=== PATIENT | female | born 1975 | race Caucasian/White ===

== ENCOUNTER 2019-11-23 08:38 | Outpatient (CLI) | payer OTHER, SELFPAY ==
--- NOTE | ~2019-11-23 | US_ITS ---
US thyroid INDICATION: Thyroid nodules TECHNIQUE: Real-time sonographic images of the thyroid gland were obtained. COMPARISON: No prior studies for comparison. FINDINGS: The right thyroid lobe measures 4.5 x 1.4 x 1.6 cm. The left thyroid lobe measures 3.9 x 1 .3 x 1.6 cm. There is normal echotexture and echogenicity throughout the thyroid gland. There is a ma ss in the left lobe measuring 9 x 9 x 8 mm with coarse calcifications, solid appearance, hypoechoic, wider than tall, TR 4, likely benign. Normal vascular flow is present. IMPRESSION: 1. Probable benign calcified 9 mm left thyroid mass. Otherwise, unremarkable thyroid ultrasound. Reviewed, dictated and finalized at location A. IMPRESSION: 1. Probable benign calcified 9 mm left thyroid mass. Otherwise, unremarkable t hyroid ultrasound.
== END 2019-11-23 08:39 | disposition home or self-care (01) ==
PROVIDERS: PCP Family Medicine
DX: E04.1 Nontoxic single thyroid nodule (principal)
CPT/HCPCS: 76536

== ENCOUNTER 2020-01-17 12:32 | Emergency (ER) | payer OTHER, SELFPAY ==
[2020-01-17 12:35] VITALS: BP 144/78; PULSE 122; RESP 16; TEMP 36.7; O2SAT 100
[2020-01-17] MEDS: KETOROLAC (*BKC) 60 MG/2 ML VIAL IM (13:06)
--- NOTE | 2020-01-17 13:26 | ED.BACK ---
HPI - Back Pain/Injury General Chief Complaint: Back Pain/Injury Stated Complaint: extreme back pain Source: patient Mode of arrival: wheelchair Limitations: no limitations History of Present Illness MD elicited complaint: back pain and back injury Pertinent past history: prior back pain Onset (ago): week(s) Timing: intermittent Severity: moderate Pain scale (0-10): 7 Similar Symptoms Previously: Yes Quality: spasming Location: lumbar spine Radiation: none Exacerbating factors: movement and walking Relieving factors: immobilization and medication Context: while lifting, turning/twisting and bending Associated symptoms: denies other symptoms Related Data Home Medications Medication Instructions Recorded Confirmed alprazolam 1 mg PO DAILY PRN 01/17/20 01/17/20 escitalopram oxalate 10 mg PO DAILY 01/17/20 01/17/20 tramadol 50 mg PO Q6-8H PRN 01/17/20 01/17/20 Allergies Allergy/AdvReac Type Severity Reaction Status Date / Time acetaminophen [Vicodin] Allergy Intermediate Vomiting Verified 01/17/20 12:53 hydrocodone [Vicodin] Allergy Intermediate Nausea and Verified 01/17/20 12:53 Vomiting Review of Systems Review of Systems: All systems reviewed & are unremarkable except as noted in HPI and below PMFSH Past Medical History Medical History Chronic back pain Depression Exam Const: General: no acute distress and alert Orientation/consciousness: patient oriented x3 HENMT: Head: normal to inspection Eyes: Conjunctivae: conjunctivae normal Pupils: Equal, round and reactive pupils present EOM: EOMs intact bilaterally Neck: Neck: normal visual inspection, no lymphadenopathy and no meningeal signs Chest: Chest palpation & inspection: normal inspection of the chest Resp: Effort & Inspection: normal respiratory effort Auscultation: clear to auscultation bilaterally Cardio: Rate: regular rate Rhythm: regular rhythm GI: Auscultation: normal bowel sounds : General: Yes no CVA tenderness Urinary Catheter: Urinary Catheter: patent and draining Back/Spine/Pelvis: Back: no CVA tenderness Other: L4 bilateral paravertebral tenderness with palpation Skin: General skin exam: normal color Rashes: no rashes Neuro: General: patient oriented x3 Extrem: General: normal to inspection Psych: Mental Status: mental status grossly normal Course Course Emergency Course: after reassessment of patient patient describes pain as less intent from a 01/06 to about a 410 advised take medicine as prescribed and follow-up with her primary care physician. Vital Signs Vital signs: Vital Signs Temperature 36.7 C 01/17/20 12:35 Pulse Rate 122 H 01/17/20 12:35 Respiratory Rate 16 01/17/20 12:35 Blood Pressure 144/78 H 01/17/20 12:35 Pulse Oximetry 100 01/17/20 12:35 Temperature 36.7 C 01/17/20 12:35 Pulse Rate 122 H 01/17/20 12:35 Respiratory Rate 16 01/17/20 12:35 Blood Pressure 144/78 H 01/17/20 12:35 Pulse Oximetry 100 01/17/20 12:35 Critical Care Time Critical Care Time Critical Care Time: No Discharge Plan Discharge Clinical Impression: Strain of lumbar region Qualifiers: Encounter type: initial encounter Qualified Code(s): S39.012A - Strain of muscle, fascia and tendon of lower back, initial encounter Patient Disposition: Home, Self-Care Condition: Stable Instructions: Antibiotic Form, Back Pain (ED) Additional Instructions: Take medicine as prescribed and follow-up with primary care physician symptoms persist or worsen. Prescriptions: New naproxen 500 mg tablet 500 mg PO BID Qty: 14 RF: 0 cyclobenzaprine 5 mg tablet 5 mg PO TID Qty: 20 RF: 0 No Action alprazolam 1 mg tablet 1 mg PO DAILY PRN (Reason: Anxiety) RF: 0 tramadol 50 mg tablet 50 mg PO Q6-8H PRN (Reason: Pain) RF: 0 escitalopram oxalate 10 mg tablet 10 mg PO DAILY RF: 0 Follow-up/Referrals:
== END 2020-01-17 13:45 | disposition home or self-care (01) ==
PROVIDERS: Emergency Provider Emergency Medicine; PCP Family Medicine
DX: S39.012A Strain of muscle, fascia and tendon of lower back, initial encounter (principal); X50.9XXA Other and unspecified overexertion or strenuous movements or postures, initial encounter
CPT/HCPCS: 96372; 99283; J1885

== ENCOUNTER 2022-08-30 11:24 | Emergency (ER) | payer OTHER, SELFPAY ==
--- NOTE | ~2022-08-30 | XR_ITS ---
EXAMINATION: XR knee RT min 4V DATE: 08/30/2022 11:49 INDICATION: Right knee pain. Trauma. TECHNIQUE: 5 views of right knee were obtained. COMPARISON: None. FINDINGS: Bone alignment is normal. No fracture. There is mild osteoarthritis of patellofemoral tomi rtment. No knee joint effusion. There is anterior knee soft tissue swelling. IMPRESSION: 1. Mild right knee osteoarthritis. Reviewed, dictated and finalized at location A. [employer]
--- NOTE | 2022-08-30 11:33 | ED.LOWEXIN ---
HPI - Extremity Injury (Lower) General Chief Complaint: Fall Stated Complaint: Rt knee injury Time Seen by Provider: 08/30/22 11:24 Source: patient Mode of arrival: ambulatory Limitations: no limitations History of Present Illness HPI Narrative: 47 year old female presents to the Emergency Department complaining of right knee injury and pain. Patient states she slipped at [employer] and fell directly on to anterior knee. Pain across anterior knee just below patella. Patient has been ambulatory on knee. MD complaint: knee injury Onset (ago): hour(s) (one) Type of Injury: blunt Place: work Severity: moderate Relieving factors: nothing Exacerbating factors: weight bearing, movement and palpation Context: fall Associated symptoms: able to partially bear weight Other symptoms: none Related Data Home Medications Medication Instructions Recorded Confirmed aripiprazole 2 mg tablet 2 mg PO DAILY 08/30/22 08/30/22 dextroamphetamine-amphetamine 20 20 mg PO DAILY 08/30/22 08/30/22 mg tablet lorazepam 1 mg tablet 1 mg PO BID 08/30/22 08/30/22 Allergies Allergy/AdvReac Type Severity Reaction Status Date / Time acetaminophen [Vicodin] Allergy Intermediate Vomiting Verified 08/30/22 11:48 hydrocodone [Vicodin] Allergy Intermediate Nausea and Verified 08/30/22 11:48 Vomiting Review of Systems Review of Systems: All systems reviewed & are unremarkable except as noted in HPI and below Constitutional: Constitutional: Reports as per HPI and Reports no additional constitutional complaints Eyes: Eyes: Reports as per HPI and Reports no additional eye complaints ENT: Reports system reviewed and no additional complaints, except as documented and Reports as per HPI Cardiovascular: Cardiovascular: Reports as per HPI and Reports no additional cardiovascular complaints Respiratory: Respiratory: Reports as per HPI and Reports no additional respiratory complaints Gastrointestinal: Gastrointestinal: Reports as per HPI and Reports no additional gastrointestinal complaints Genitourinary: Genitourinary: Reports no additional female genitourinary complaints and Reports as per HPI Musculoskeletal: Musculoskeletal: Reports no additional musculoskeletal complaints, Reports as per HPI and Reports arthralgias Integumentary/Breasts: Skin/Breast: Reports system reviewed and no additional complaints, except as docu Neurologic: Reports system reviewed and no additional complaints, except as documented, Reports as per HPI, Denies focal weakness, Denies numbness and Denies weakness Psychiatric: Psychiatric: Reports no additional psychiatric complaints and Reports as per HPI Endocrine: Endocrine: Reports no additional endocrine complaints and Reports as per HPI Hematologic/Lymphatic: Hematologic/Lymphatic: Reports no additional hematologic/lymphatic complaints and Reports as per HPI Allergic/Immunologic: Allergic/Immunologic: Reports no additional allergic/immunologic complaints and Reports as per HPI [facility] Past Medical History Medical History (Updated 08/30/22 @ 12:35 by Rico Malhotra MD) Chronic back pain Depression Exam Const: General: healthy appearing Nutritional Appearance: well nourished Orientation/consciousness: patient oriented x3 Limitations: no limitations HENMT: Head: normal to inspection Ears: external ears normal Face/Nose/Sinus: Normal external nose present Face and sinus: normal facial exam Eyes: Pupils: Equal, round and reactive pupils present EOM: EOMs intact bilaterally Direct Ophthalmoscopy: no photophobia Neck: Neck: normal visual inspection Chest: Chest palpation & inspection: normal inspection of the chest Resp: Effort & Inspection: normal respiratory effort Cardio: Rate: regular rate GI: GI Palp: Yes Soft to palpation and Yes Tenderness to palpation present (GI) Skin: General skin exam: normal color Rashes: no rashes Wounds: no wounds Neuro: General: patient oriented x3, moves all extr
[2022-08-30 11:40] VITALS: BP 154/107; PULSE 81; RESP 20; TEMP 36.9; O2SAT 98
[2022-08-30] MEDS: traMADol HCL (*CRX) 50 MG TABLET PO (12:49)
[2022-08-30 12:50] VITALS: BP 119/83; PULSE 88; RESP 20; TEMP 36.7; O2SAT 98
== END 2022-08-30 12:58 | disposition home or self-care (01) ==
PROVIDERS: Emergency Provider Emergency Medicine; PCP Family Medicine
DX: S80.01XA Contusion of right knee, initial encounter (principal); S86.911A Strain of unspecified muscle(s) and tendon(s) at lower leg level, right leg, initial encounter; W01.0XXA Fall on same level from slipping, tripping and stumbling without subsequent striking against object, initial encounter; Y92.524 Gas station as the place of occurrence of the external cause
CPT/HCPCS: 73564; 99283; A9270

== ENCOUNTER 2022-10-24 16:15 | Emergency (ER) | payer OTHER, SELFPAY ==
--- NOTE | ~2022-10-24 | CT_ITS ---
EXAMINATION: CT facial bones wo con DATE: 10/24/2022 17:14 INDICATION: Head injury with right eye hematoma and wound post fall from horse TECHNIQUE: Computed tomography (CT) of the facial bones and maxillofacial region was performed withou t intravenous contrast. Coronal reconstructions were obtained. Automated exposure control and iterati ve reconstruction technique were employed. The dose-length product was 253.03 mGy-cm. COMPARISON: None. FINDINGS: Preseptal soft tissue swelling and stranding at the right orbit. The globe appears intact with no pos t septal stranding. Left orbit is normal. No maxillofacial fractures. Specifically the girard of the o rbits and paranasal sinuses, the nasal bone, nasal septum, zygomatic arches, mandible and pterygoid p lates are intact. Patient is edentulous with alveolar ridge resorption. Normal alignment and mild ost eoarthritis at the bilateral temporomandibular joints. Small amount of bubbly mucus in the dependent right sphenoid sinus. The remainder of the paranasal sinuses, the middle ear cavities and visualized portions of the bilateral mastoid air cells are clear. Mild to moderate facet osteoarthritis bilatera lly in the visualized upper cervical spine. There several surgical clips in the right submandibular r egion and cephalad right neck. A couple small calcifications likely representing Gage along the righ t mandibular duct located along the right side of the base of the tongue. IMPRESSION: 1. Preseptal soft tissue swelling at the right orbit with no post septal stranding or maxillofacial f racture. Reviewed, dictated and finalized at location A. IMPRESSION: 1. Preseptal soft tissue swelling at the right orbit with no post septal strand ing or maxillofacial fracture.
--- NOTE | ~2022-10-24 | XR_ITS ---
EXAMINATION: XR forearm LT 2V DATE: 10/24/2022 17:15 INDICATION: Left posterior elbow pain. Left wrist pain. TECHNIQUE: 2 views of left forearm were obtained. COMPARISON: None. FINDINGS: There is a fracture deformity of distal radius. The distal articular surface demonstrates 1 6 degrees dorsal angulation. Joint spaces are normal. No elbow joint effusion. IMPRESSION: 1. Distal radius fracture. Consider wrist radiographs. Reviewed, dictated and finalized at location E.
[2022-10-24 16:15] VITALS: BP 138/90; PULSE 100; RESP 16; TEMP 37.1; O2SAT 97
[2022-10-24] MEDS: TETANUS,DIPHTHERIA,AC PERTUSSIS ADULT 0.5 ML (ADACEL) IM (16:43)
[2022-10-24] MEDS: KETOROLAC (*BKC) 60 MG/2 ML VIAL IM (16:43)
--- NOTE | 2022-10-24 17:49 | ED.FALL ---
HPI - Fall General Chief Complaint: Fall Stated Complaint: fall Time Seen by Provider: 10/24/22 16:22 Source: patient and family Mode of arrival: ambulatory Limitations: no limitations History of Present Illness HPI Narrative: this is a 47-year-old female who presents after she fell off her horse earlier this afternoon hitting the right side of her face and periorbital region causing abrasion to the right upper orbit area with some no loss of consciousness, currently no headache no blurry vision no nausea or vomiting. Patient also landed on her wrist and forearm causing swelling and pain with decreased movement at her wrist and finger secondary to pain and inflammation. complaint: fall Onset (ago): hour(s) Fall from: other ( Fell off her horse) Fall witnessed: yes, by bystander Place fall occurred: other Loss of consciousness: none Location of injury - extremities: Right: hand ( Wrist swelling with pain) Severity scale (1-10): 7 Related Data Home Medications Medication Instructions Recorded Confirmed aripiprazole 2 mg tablet 2 mg PO DAILY 08/30/22 10/24/22 dextroamphetamine-amphetamine 20 20 mg PO DAILY 08/30/22 10/24/22 mg tablet lorazepam 1 mg tablet 1 mg PO BID 08/30/22 10/24/22 Allergies Allergy/AdvReac Type Severity Reaction Status Date / Time acetaminophen [Vicodin] Allergy Intermediate Vomiting Verified 10/24/22 16:24 hydrocodone [Vicodin] Allergy Intermediate Nausea and Verified 10/24/22 16:24 Vomiting Review of Systems Review of Systems: All systems reviewed & are unremarkable except as noted in HPI and below PMFSH Past Medical History Medical History (Updated 10/24/22 @ 17:54 by Fredrick Esparza MD) Chronic back pain Depression Exam Const: General: healthy appearing Nutritional Appearance: well nourished Orientation/consciousness: patient oriented x3 Limitations: no limitations HENMT: Head: normal to inspection Head images: 1. abrasion Other: abrasion to the right upper orbit area Eyes: Conjunctivae: conjunctivae normal Pupils: Equal, round and reactive pupils present EOM: EOMs intact bilaterally Neck: Neck: normal visual inspection Chest: Chest palpation & inspection: normal inspection of the chest Resp: Effort & Inspection: normal respiratory effort Cardio: Rate: regular rate Rhythm: regular rhythm GI: GI Palp: Yes Soft to palpation Auscultation: normal bowel sounds : Speculum Exam - Cervix: normal appearance of the cervix Urinary Catheter: Urinary Catheter: patent and draining Back/Spine/Pelvis: Back: no CVA tenderness Skin: Wounds: wounds noted Neuro: General: patient oriented x3 Cranial nerves: Yes Nystagmus not present Extrem: Other: pain and swelling with decreased range of motion of the right wrist Psych: Mental Status: mental status grossly normal Affect: normal affect Course Course Emergency Course: patient had blood work and that was reviewed with the patient and family CT scan performed shows no acute abnormalities, x-ray performed of the right forearm and wrist and elbow shows a distal radius fracture that is closed with 16? dorsal angulation. Wrist splint was applied along with sling and Ortho was contacted for setting up follow-up for this patient. Vital Signs Vital signs: Vital Signs Temperature 37.1 C 10/24/22 16:15 Pulse Rate 100 10/24/22 16:15 Respiratory Rate 16 10/24/22 16:15 Blood Pressure 138/90 10/24/22 16:15 Pulse Oximetry 97 10/24/22 16:15 Oxygen Delivery Room Air 10/24/22 16:15 Temperature 37.1 C 10/24/22 16:15 Pulse Rate 100 10/24/22 16:15 Respiratory Rate 16 10/24/22 16:15 Blood Pressure 138/90 10/24/22 16:15 Pulse Oximetry 97 10/24/22 16:15 Oxygen Delivery Room Air 10/24/22 16:15 Critical Care Time Critical Care Time Critical Care Time: No Discharge Plan Discharge Clinical Impression: Fracture of wrist Qualifiers: Encounter
[2022-10-24 18:00] VITALS: BP 141/84; PULSE 84; RESP 18; TEMP 36.2; O2SAT 100
== END 2022-10-24 18:13 | disposition home or self-care (01) ==
PROVIDERS: Emergency Provider Emergency Medicine; PCP Surgery
DX: S62.101A Fracture of unspecified carpal bone, right wrist, initial encounter for closed fracture (principal); S00.211A Abrasion of right eyelid and periocular area, initial encounter; Z23 Encounter for immunization; V80.010A Animal-rider injured by fall from or being thrown from horse in noncollision accident, initial encounter; Y93.52 Activity, horseback riding
CPT/HCPCS: 70486; 73090; 90471; 90715; 96372; 99284; A4565; J1885

== ENCOUNTER 2022-10-29 01:30 | Day surgery (SDC) | payer OTHER, SELFPAY ==
[2022-10-28 10:04] VITALS: BMI 26.9
--- NOTE | 2022-10-28 10:09 | PC.NURSE ---
Report to the Outpatient Waiting Room, entrance under the green pavilion located off [facility], at time 1430 on date 10/29/22. Planned Procedure Time: 1630. Time changes happen often and if your time is changed the preop area will call you the afternoon before. - You and your visitor will be asked to self-screen and do not enter if you have any COVID symptoms. - A mask is optional within the hospital at this time. Patients may have clear liquids (water, carbonated beverages, clear teas, apple juice) until 3 hours prior to surgery with a maximum of 20 ounces. - No food from midnight until time of surgery Take the following medications with a SIP of water the morning of surgery: ABILIFY, PROZAC, LORAZEPAM, TRAMADOL IF NEEDED DO NOT STOP ANY OF YOUR OTHER PRESCRIPTION MEDICATIONS PRIOR TO SURGERY EXCEPT THE FOLLOWING Medications to discontinue per physician: N/A Date to take last dose: N/A Please no make-up, nail sinhala, hairspray, perfume, deodorant, or body powder the day of surgery. No jewelry (including any body piercings) or valuables the day of surgery, leave them at home. Please take a shower or bath the night before, or the morning of, surgery with an antibacterial soap. Wear comfortable, loose fitting clothing. - Jewelry must be removed prior to entering the operating room. Rings and piercings that are not removed may be cut off. - The hospital will not accept responsibility for valuables. - Please leave all valuables, including medications, at home the day of surgery. If you are going home after surgery, a licensed wheelchair van driver must drive you home. - NO public transportation without another adult if you receive anesthesia. - We recommend that an adult stay with you for 24 hours following discharge. - We also recommend that you do not drive, make important decision, drink alcoholic beverages, or take any drugs that were not prescribed by your health care provider for at least 24 hours after your discharge time. Follow any additional instructions given to you from your surgeon. If you or anyone in your household have experienced Covid symptoms in the past week, please notify your surgeon or the nurse liaison at the phone number below for possible testing. Telephone instructions given to PT - ARASH TUCKER and asked if any additional questions and then verbalized understanding. Patient advised to call surgeon office or pre surgery nurse liaison [phone] if any additional questions.
--- NOTE | 2022-10-29 07:14 | WPDHPUPDATE1 ---
History and Physical Update Update Date/Time: 10/29/22 07:14 History and Physical has been reviewed, including an updated exam of the patient. There are NO changes in the patient's condition. Risks, benefits, and alternatives have been discussed and questions answered. Patient agrees to proceed with procedure.
[2022-10-29 13:28] VITALS: BP 145/97; PULSE 90; RESP 16; TEMP 36.8; O2SAT 98
[2022-10-29] MEDS: CELECOXIB 200 MG CAPSULE PO (13:38)
[2022-10-29] MEDS: ACETAMINOPHEN 500 MG TABLET 1000 MG PO (13:38)
--- NOTE | 2022-10-29 13:40 | ECG_ITS ---
Measurements Intervals [place] Rate: 77 P: 67 ID: 120 QRS: 75 QRSD: 94 T: 47 QT: 369 QTc: 418 Interpretive Statements SINUS RHYTHM BASELINE ARTIFACT- V5 NORMAL ECG NO PREVIOUS ECG AVAILABLE FOR COMPARISON Electronically Signed On 10-29-2022 14:23:25 CDT by Vini Yeh D.O.
== END 2022-10-29 15:23 | disposition home or self-care (01) ==
PROVIDERS: PCP Physician Assistant Medical; Visit Provider Orthopaedic Surgery
PROC: (CPT 25575; principal; 2022-10-29 16:30)
DX: S52.502A Unspecified fracture of the lower end of left radius, initial encounter for closed fracture (principal); V80.010A Animal-rider injured by fall from or being thrown from horse in noncollision accident, initial encounter
CPT/HCPCS: 93005; 99212; A9270; G0463

== ENCOUNTER 2022-10-30 01:52 | Day surgery (SDC) | payer OTHER, SELFPAY ==
[2022-10-30] VITALS (10 sets, daily range): BP systolic 126–161; BP diastolic 75–96; PULSE 82–108; RESP 13–16; TEMP 36.5–36.8; O2SAT 94–100; BMI 28.5
--- NOTE | ~2022-10-30 | XR_ITS ---
EXAMINATION: XR surgery orthopedic DATE: 10/30/2022 12:17 INDICATION: Distal left radial fracture TECHNIQUE: 4 fluoroscopic images of the left wrist were obtained during procedure performed by Dr. Russ mcneal. Radiologist was not present for the imaging or procedure. The amount of fluoroscopy time used during this procedure was 6.9 minutes. COMPARISON: 10/25/2022 FINDINGS: Initial image redemonstrates the comminuted fracture of the distal left radius which appears nondispl aced on the dorsal palmar projection. Subsequent images demonstrate internal fixation with a volar T plate and screws. There is persistent mild dorsal impaction with approximately 10 degree of dorsal ti lt of the distal articular surface. No evident fracture gap or incongruity evident along the articula r cortex. Joint spaces appear relatively preserved. IMPRESSION: 1. Fluoroscopy utilized during open reduction and internal fixation of a comminuted intra-articular f racture of the distal left radius with 10 degree residual dorsal tilt of the distal articular surface . Reviewed, dictated and finalized at location B. IMPRESSION: 1. Fluoroscopy utilized during open reduction and internal fixation of a commin uted intra-articular fracture of the distal left radius with 10 degree residual dorsal tilt of the distal articular surface.
--- NOTE | 2022-10-30 07:16 | WPDHPUPDATE1 ---
History and Physical Update Update Date/Time: 10/30/22 07:16 History and Physical has been reviewed, including an updated exam of the patient. There are NO changes in the patient's condition. Risks, benefits, and alternatives have been discussed and questions answered. Patient agrees to proceed with procedure.
--- NOTE | 2022-10-30 07:58 | SUR.PREOP ---
Case was cancelled yesterday due to emergencies not related to this patient. Gave patient instructions to be here at 830am today.
[2022-10-30] MEDS: ACETAMINOPHEN 500 MG TABLET 1000 MG PO (08:21)
[2022-10-30] MEDS: CELECOXIB 200 MG CAPSULE PO (08:22)
--- NOTE | 2022-10-30 09:30 | WPDANESEPPF ---
Anes - Initial Pre Proc Eval Procedure: Operation Date: 10/30/22 10:30 Proposed Procedures p Open Reduction Internal Fixation Left Distal Radius Fracture - Brandan Paris MD Date/Time: 10/30/22 09:30 Surgeon: Brandan Paris MD Pre Op Diagnosis: left distal radius fx Patient Data Age: 47 Gender: F Height: 1.7 m Weight: 82.8 kg Last Vital Signs Temp 36.8 C 10/30/22 08:41 Pulse 82 10/30/22 08:41 Resp 16 10/30/22 08:41 BP 126/83 10/30/22 08:41 Pulse Ox 99 10/30/22 08:41 O2 Del Method Room Air 10/30/22 08:41 Allergies Allergy/AdvReac Type Severity Reaction Status Date / Time hydrocodone [Vicodin] Allergy Intermediate Nausea and Verified 10/29/22 13:19 Vomiting Home Medications Medication Instructions Recorded Confirmed Type dextroamphetamine-amphetamine 20 20 mg PO DAILY 08/30/22 10/29/22 History mg tablet lorazepam 1 mg tablet 1 mg PO BID 08/30/22 10/29/22 History tramadol 50 mg tablet 50 mg PO Q6H PRN pain #14 tabs 10/24/22 10/29/22 Rx aripiprazole 5 mg tablet 5 mg PO DAILY 10/28/22 10/29/22 History fluoxetine 40 mg capsule 40 mg PO DAILY 10/28/22 10/29/22 History Patient hx anesthesia problems: none Family hx anesthesia problems: none Results Review: All pre-operative results and documents have been reviewed as part of the pre-operative evaluation. [facility] Past Medical History Medical History Chronic back pain Depression Social History Social History Smoking packs per day: 0.75 Smoking cigarettes per day: 15.0 Years smoked: 30 Smoking pack-years: 22.50 Smoking status: Current every day smoker Tobacco type: cigarettes Alcohol intake: never Substance use: never Substance use type: does not use Living arrangements: with family Spiritual care concerns: No Anes - Eval Final PreProcedure Day of Procedure 10/30/22 09:30 Patient weight: overweight Heart: regular rate and rhythm Lungs: decreased breath sounds Airway: Mallampati scale class II Neurological: alert and oriented Last oral intake: >/= 8 hours ASA classification: III Emergent: no Anesthetic plan: proceed Anesthesia type and monitoring: general LMA and standard monitoring Results Review: All pre-operative results and documents have been reviewed as part of the pre-operative evaluation. Informed Consent: The patient's anesthetic plan and its attendant risks and benefits were discussed with the patient/family/POA. Questions were solicited and answers provided to the satisfaction of the patient/family/POA.
[2022-10-30] MEDS: ceFAZolin 2 GM/D5W 50 ML 2 GM/50 ML BAG IVPB (10:40)
[2022-10-30] MEDS: BUPivacaine HCL 0.5% 10 ML AMP INFILTRATE (11:11)
[2022-10-30] MEDS: LACTATED RINGERS 1,000 ML 30 ML IV CONT ×2 (12:44)
[2022-10-30] MEDS: fentaNYL CITRATE INJ (*CRX) 100 MCG/2 ML VIAL 25 MCG IV PUSH ×8 (13:02→13:48)
--- NOTE | 2022-10-30 13:02 | W.PM.PROC2 ---
Procedure Note - Detailed Date of Procedure 10/30/22 Pre-op Diagnosis left distal radius fx Post-op Diagnosis Same Procedure Performed ORIF RIGHT DISTAL RADIUS FRACTURE Surgeon Brandan Paris MD Anesthesia General Description of Procedure THE LEFT UPPER EXTREMITY WAS PREPPED AND DRAPED IN THE STERILE FASHION. A STANDARD HENRYS APPROACH WAS USED TO THE VOLAR WRIST. DISSECTION THROUGH THE SKIN AND SUBCUTANEOUS TISSUE WAS PREFORMED. THE FCR TENDON WAS IDENTIFIED. THE RADIAL ARTERY WAS IDENTIFIED AND RETRACTED. THE THE FLEXOR POLLICIS AND THE COMMON FLEXOR TENDONS WERE IDENTIFIED AND RETRACTED. THE PRONATOR QUADRATUS WAS IDENTIFIED AND INCISED EXPOSING THE FRACTURE. A TRIAL REDUCTION WAS PREFORMED. NEXT A BIOMET DISTAL RADIUS LOCKING PLATE WAS PLACED BRIDGING THE FRACTURE FRAGMENTS. SCREWS WERE PLACED DISTALLY AND PROXIMALLY. THE DISTAL SCREWS WERE IMAGED AND FOUND TO BE EXTRA ARTICULAR. C ARM IMAGES WERE PREFORMED AND HARDWARE AND FRACTURE FRAGMENTS WERE IN GOOD POSITION. THE TOURNIQUET WAS DEFLATED AND THE BLEEDERS WERE CAUTERIZED. THE FASCIA AND SUB CUTANEOUS LAYERS WERE APPROXIMATED WITH 3-0 VICRYL. THE SKIN WAS APPROXIMATED WITH 3-0 STRATAFIX THEN DERMABOND WAS APPLIED. STERILE DRESSING AND SPLINT WAS APPLIED. PATIENT WAS EXTUBATED. Estimated Blood Loss 20 Complications No immediate complications Condition Stable Disposition PACU
[2022-10-30] MEDS: oxyCODONE HCL (*CRX) 5 MG TAB IR PO (14:12)
== END 2022-10-30 15:00 | disposition home or self-care (01) ==
PROVIDERS: PCP Physician Assistant Medical; Visit Provider Orthopaedic Surgery
PROC: (CPT 25575; principal; 2022-10-30 10:30)
DX: S52.572A Other intraarticular fracture of lower end of left radius, initial encounter for closed fracture (principal); V80.010A Animal-rider injured by fall from or being thrown from horse in noncollision accident, initial encounter; M54.89 Other dorsalgia; F32.A Depression, unspecified; F17.210 Nicotine dependence, cigarettes, uncomplicated
CPT/HCPCS: 25608; 99199; A9270; C1713; J0690; J2250; J2405; J2704; J3010; J7120

== ENCOUNTER 2022-11-28 15:04 | Outpatient (RCR) | payer OTHER, SELFPAY ==
--- NOTE | 2022-11-28 16:18 | PTOPEVAL1 ---
Assessment and note entered by JT File, PT Evaluation Information Assessment Status Evaluation Diagnosis L distal radius fracture Onset 10/24/22 Subjective Information patient reports she bailed off a horse and fell on her L arm. she reports she broke the wrist. she reports she has surgical repair of the L wrist fracture. she reports she is now coming to therapy due to lack of mobility and strength in the L arm . she reports she is unable to sampler pickup objects with the L hand, she reports the is using the R hand constantly to perform tasks, and is unable to use the L hand to cook or clean. 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 Reported Pain Level Pain Score 1: Self Report Assessment PT Clinical Summary mrs. dyson is a 47 yo woman who presents to skilled PT for rehab following L wrist fracture and surgical stabilization. she presents today with pain and deficits in rom, strength, gripping, and functional lifting/carrying ability. she would benefit from continued skilled PT to address her objective/functional deficits and return to her prior level functional activity performance/ quality of life. Plan of Care Interventions Electrical Stimulation,Hot Pack/Cold Pack,Manual Therapy,Neuro Re-education,Patient/Caregiver Educati,Therapeutic Activities,Therapeutic Exercise PT Services Indicated Yes Treatment Frequency and 3x weekly for 12 visits Duration These treatments will address the objective and functional deficits as defined above. The patient will be advanced safely and appropriately in order for the patient to progress towards his/her prior level of function. Additional exercises will be introduced and as well as a comprehensive home exercise program upon discharge, if needed, ?to ensure carryover of functional gains achieved in the clinic. This treatment plan has been reviewed and agreement upon by the patient.
--- NOTE | 2022-11-28 16:18 | OPREHPOC ---
Outpatient Therapy Plan of Care This is a Multidisciplinary Plan of Care that may contain components documented by all disciplines (PT, OT, and ST.) PT Problem 1 PT Problem #1 Knowledge Deficit PT Goal 1 Goal 1. independent and compliant with HEP to improve tolerance for continued skilled PT and exercsies. Target Visit 6 PT Problem 2 PT Problem #2 Impaired Strength PT Goal 1 Goal 1. improve L elbow strength to 5/5 2. improve L forearm pronation and supination to 5 /5 3. improve L wrist strength to 5/5 4. improve L hand exterminator strength to 90lbs or better Target Visit 12 PT Problem 3 PT Problem #3 Impaired Range of Motion PT Goal 1 Goal 1. 80 degrees or better arom L supination 2. 65 degrees or better arom L pronation 3. 65 degrees or better arom L wrist flexion 4. 55 degrees or better arom L wrist extension 5. improve L wrist arom UD 25 degrees or better 6. improve L wrist arom RD to 15 degrees or better Target Visit 12 PT Problem 4 PT Problem #4 Impaired Functional Mobil PT Goal 1 Goal 1. patient to return to cooking and cleaning with the L UE 2. patient to return to riding horses 3. quick dash to display less than 30% functional deficits
--- NOTE | 2022-12-27 11:51 | PTOPPROG ---
Assessment and note entered by Lawanda Conroy, PT Evaluation Information Assessment Status Progress Diagnosis L distal radius fracture Onset 10/24/22 Subjective Information Magui reports she had an increase in left wrist pain this am for unknown reasons. She states she may have slept on it wrong but does not recall anything else that would cause an increase in pain . She denies increased pain after her last PT session. Assessment PT Clinical Summary Magui Burns has completed 10 skilled PT visit for a distal radius fracture on the left side. She is reporting an increase in pain this date for unknown reasons. She denies a fall or injury that would explain the increase in pain and did not have increased pain after her last PT session. 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 She will continue to benefit from skilled PT to further address ongoing deficits and improve her daily function. Plan of Care Interventions Electrical Stimulation,Hot Pack/Cold Pack,Manual Therapy,Patient/Caregiver Educati,Therapeutic Activities,Therapeutic Exercise PT Services Indicated Yes Treatment Frequency and Continue PT x 2 visits then reassess for ongoing Duration need These treatments will address the objective and functional deficits as defined above. The patient will be advanced safely and appropriately in order for the patient to progress towards his/her prior level of function. Additional exercises will be introduced and as well as a comprehensive home exercise program upon discharge, if needed, ?to ensure carryover of functional gains achieved in the clinic. This treatment plan has been reviewed and agreement upon by the patient.
--- NOTE | 2023-01-08 13:11 | PTOPREEVAL ---
Assessment and note entered by JT File, PT Evaluation Information Assessment Status Re-evaluation Diagnosis L distal radius fracture Onset 10/24/22 Subjective Information patient reports she feels better since being in therapy for her L wrist. she reports she was supposed to follow up with MD tomorrow, but has to reschedule due to a work conflict. patient reports she did get up on her horse yesterday, but getting off her horse is still difficult and makes her fearful. Reported Pain Level Pain Score 0: Self Report Assessment PT Clinical Summary mrs. dyson presents to skilled PT services for her 12th skilled therapy visit. she has made great improvements in her rom, strength, and functional use of the L UE since her initial evaluation. she has made progress towards goall goals, and met several for rom, strength, functional use, and hep performance. she would benefit from continued skilled PT to address her remaining objective/ functional deficits and continue to work towards achievement of all goals. Plan of Care Interventions Electrical Stimulation,Hot Pack/Cold Pack,Manual Therapy,Patient/Caregiver Educati,Therapeutic Activities,Therapeutic Exercise PT Services Indicated Yes Treatment Frequency and 2x weekly for 6 more visits Duration These treatments will address the objective and functional deficits as defined above. The patient will be advanced safely and appropriately in order for the patient to progress towards his/her prior level of function. Additional exercises will be introduced and as well as a comprehensive home exercise program upon discharge, if needed, ?to ensure carryover of functional gains achieved in the clinic. This treatment plan has been reviewed and agreement upon by the patient.
--- NOTE | 2023-01-08 13:11 | OPREHPOC ---
Outpatient Therapy Plan of Care This is a Multidisciplinary Plan of Care that may contain components documented by all disciplines (PT, OT, and ST.) PT Problem 1 PT Problem #1 Knowledge Deficit PT Goal 1 Goal 1. independent and compliant with HEP to improve tolerance for continued skilled PT and exercsies. Target Visit 6 Progress Met PT Problem 2 PT Problem #2 Impaired Strength PT Goal 1 Goal 1. improve L elbow strength to 5/5 2. improve L forearm pronation and supination to 5 /5 3. improve L wrist strength to 5/5 4. improve L hand quality assurance manager strength to 90lbs or better Target Visit 12 Progress Partially Met PT Problem 3 PT Problem #3 Impaired Range of Motion PT Goal 1 Goal 1. 80 degrees or better arom L supination 2. 65 degrees or better arom L pronation 3. 65 degrees or better arom L wrist flexion 4. 55 degrees or better arom L wrist extension 5. improve L wrist arom UD 25 degrees or better 6. improve L wrist arom RD to 15 degrees or better Target Visit 12 Progress Partially Met PT Problem 4 PT Problem #4 Impaired Functional Mobil PT Goal 1 Goal 1. patient to return to cooking and cleaning with the L UE 2. patient to return to riding horses 3. quick dash to display less than 30% functional deficits Progress Partially Met
--- NOTE | 2023-04-29 16:45 | PCPTNOTE ---
Patient did not attend follow up appointments and will be discharged due to non compliance
== END 2023-01-16 23:59 | disposition home or self-care (01) ==
LOC: CHSPT 15:04
PROVIDERS: Visit Provider Orthopaedic Surgery
DX: S52.502D Unspecified fracture of the lower end of left radius, subsequent encounter for closed fracture with routine healing (principal)
CPT/HCPCS: 97014; 97110; 97140; 97150; 97161; G0283

== ENCOUNTER 2023-10-21 20:20 | Emergency (ER) | payer OTHER, SELFPAY ==
[2023-10-21 20:20] VITALS: BP 136/92; PULSE 107; RESP 18; TEMP 37.1; O2SAT 18
[2023-10-21 20:27] LABS: Glucose Point of Care 298 mg/dl (65-105)
--- NOTE | 2023-10-21 20:30 | ED.RECABL ---
HPI - Recheck/Abnormal Lab/Rx General Chief Complaint: Recheck/Abnormal Lab/Rx Stated Complaint: High Blood Sugar Time Seen by Provider: 10/21/23 20:27 Source: patient Mode of arrival: ambulatory Limitations: no limitations History of Present Illness HPI narrative: 48 year old female presents to the Emergency Department complaining of elevated blood sugar. States she has been out of her Trulicity for a week and pharmacy cannot get more in. States has been watching her blood sugar go up all day. Was 298 at home and now 302. States she feels light headed, thirsty, urinating a lot. No vomiting or diarrhea. MD complaint: abnormal lab Related Data Home Medications Medication Instructions Recorded Confirmed dextroamphetamine-amphetamine 20 20 mg PO DAILY 08/30/22 10/21/23 mg tablet lorazepam 1 mg tablet 1 mg PO BID 08/30/22 10/21/23 aripiprazole 5 mg tablet 5 mg PO DAILY 10/28/22 10/21/23 fluoxetine 40 mg capsule 40 mg PO DAILY 10/28/22 10/21/23 atorvastatin 20 mg tablet 20 mg PO DAILY 10/21/23 10/21/23 dulaglutide 3 mg/0.5 mL 3 mg subcut WEEKLY 10/21/23 10/21/23 subcutaneous pen injector ([facility]) Allergies Allergy/AdvReac Type Severity Reaction Status Date / Time hydrocodone [Vicodin] Allergy Intermediate Nausea and Verified 10/21/23 20:22 Vomiting Review of Systems Review of Systems: All systems reviewed & are unremarkable except as noted in HPI and below Constitutional: Constitutional: Reports as per HPI Eyes: Eyes: Reports as per HPI ENT: Reports system reviewed and no additional complaints, except as documented Cardiovascular: Cardiovascular: Reports as per HPI and Denies chest pain Respiratory: Respiratory: Reports as per HPI and Denies dyspnea Gastrointestinal: Gastrointestinal: Reports as per HPI, Denies diarrhea, Denies nausea and Denies vomiting Genitourinary: Genitourinary: Reports no additional female genitourinary complaints and Reports nocturia Musculoskeletal: Musculoskeletal: Reports no additional musculoskeletal complaints Integumentary/Breasts: Skin/Breast: Reports system reviewed and no additional complaints, except as docu Neurologic: Reports system reviewed and no additional complaints, except as documented, Reports confusion and Reports dizziness Endocrine: Endocrine: Reports no additional endocrine complaints, Reports polydipsia and Reports polyuria Hematologic/Lymphatic: Hematologic/Lymphatic: Reports no additional hematologic/lymphatic complaints Allergic/Immunologic: Allergic/Immunologic: Reports no additional allergic/immunologic complaints [facility] Past Medical History Medical History Chronic back pain Depression Surgical History Surgical History H/O tubal ligation (~2003) H/O: hysterectomy (~2014) History of appendectomy (~2007) Social History Social History Smoking packs per day: 0.75 Smoking cigarettes per day: 15.0 Years smoked: 30 Smoking pack-years: 22.50 Smoking status: Current every day smoker Tobacco type: cigarettes Alcohol intake: never Substance use: never Substance use type: does not use Living arrangements: with family Spiritual care concerns: No Exam Const: General: healthy appearing, no acute distress and alert Nutritional Appearance: well nourished Orientation/consciousness: patient oriented x3 Limitations: no limitations HENMT: Head: normal to inspection Ears: external ears normal Face/Nose/Sinus: Normal external nose present Face and sinus: normal facial exam Mouth: Yes Normal oral and palatal mucosa present Eyes: Conjunctivae: conjunctivae normal Pupils: Equal, round and reactive pupils present EOM: EOMs intact bilaterally Direct Ophthalmoscopy: no photophobia Neck: Neck: normal visual inspection Chest: Chest palpation & inspection: n
[2023-10-21 20:49] LABS: Basophils Absolute Auto 0.07 K/mm3 (0.00-0.10); Basophils Percent Auto 0.6 % (0.0-1.0); Eosinophils Absolute Auto 0.19 K/mm3 (0.02-0.50); Eosinophils Percent Auto 1.7 % (1.0-6.0); Hemoglobin 14.8 g/dL (12.0-15.0); Immature Granulocyte Absolute 0.04 K/mm3 (0.00-0.00); Immature Granulocyte Percent A 0.4 % (0.0-0.0); Lymphocytes Absolute Auto 2.93 K/mm3 (1.10-4.50); Lymphocytes Percent Auto 26.9 % (18.0-42.0); Mean Corpuscular HGB Conc 33.6 g/dL (32-36); Mean Corpuscular Hemoglobin 28.8 pg (27.0-31.0); Mean Corpuscular Volume 85.8 fL (78.0-102.0); Mean Platelet Volume 10.2 fl (9.2-11.8); Monocytes Absolute Auto 0.47 K/mm3 (0.10-0.90); Monocytes Percent Auto 4.3 % (2.0-11.0); Neutrophils Absolute Auto 7.19 K/mm3 (1.70-7.20); Neutrophils Percent Auto 66.1 % (50.0-70.0); Platelet Count Result 291 K/mm3 (150-420); Red Blood Count 5.13 M/mm3 (4.20-5.40); Red Cell Distribution Width 12.9 % (11.6-14.4); White Blood Count 10.9 K/mm3 (4.8-10.8)
[2023-10-21] MEDS: SODIUM CHLORIDE 0.9% IV 1,000 ML 999 ML IV CONT (20:49)
[2023-10-21] MEDS: INSULIN HUMAN REGULAR (*BKC) 1,000 UNITS/10 ML VIAL 3 UNITS IV PUSH (20:51)
[2023-10-21 20:56] LABS: Appearance Urine Clear (Clear); Bilirubin Urine Negative (Negative); Blood Urine Trace-intact (Negative); Color Urine Light Yellow (Yellow); Glucose Urine UA 3+ (Negative); Ketones Urine Negative (Negative); Leukocyte Esterase Ur Negative (Negative); Nitrate Urine Negative (Negative); Protein Urine Negative (Negative)
[2023-10-21 21:03] LABS: Hemoglobin A1C 7.7 % (<5.7)
[2023-10-21 21:06] LABS: Add Urine Microscopic? YES; Bacteria Urine Trace /hpf; RBC Urine 0-2 /hpf (0-2); Squamous Epithelial Cell Urine Rare /hpf (Few); WBC Urine 0-3 /hpf (0-3)
[2023-10-21 21:08] LABS: Alanine Aminotransferase 25 U/L (14-59); Albumin Level 3.3 g/dL (3.4-5.0); Alkaline Phosphatase 99 U/L (46-116); Aspartate Amino Transferase 49 U/L (15-37); Bilirubin,Total 0.4 mg/dL (0.00-1.00); Blood Urea Nitrogen 6 mg/dL (7-18); Calcium 8.5 mg/dL (8.5-10.1); Carbon Dioxide 28 mmol/L (21-32); Chloride 101 mmol/L (98-108); Estimated CRCL calculation 69 ml/min; Estimated Glomerular Filt Rate > 60; Glucose 304 mg/dL (70-99); Total Protein 7.1 g/dL (6.4-8.2)
[2023-10-21 21:10] LABS: Acetone Negative (Negative)
[2023-10-21 21:13] LABS: Anion Gap 12 mmol/L (4-12); Osmolality Calculated 300 mOsm/kg (285-295); Potassium 3.7 mmol/L (3.5-5.1); Sodium 141 mmol/L (136-145)
[2023-10-21 21:30] LABS: Glucose Point of Care 201 mg/dl (65-105)
[2023-10-21 21:50] VITALS: BP 128/88; PULSE 91; RESP 18; O2SAT 100
== END 2023-10-21 21:50 | disposition home or self-care (01) ==
PROVIDERS: Emergency Provider Emergency Medicine; PCP Physician Assistant Medical
DX: R73.9 Hyperglycemia, unspecified (principal); F32.A Depression, unspecified; F17.210 Nicotine dependence, cigarettes, uncomplicated
CPT/HCPCS: 36415; 80053; 81001; 82010; 82948; 83036; 85025; 96361; 96374; 99284; J1815; J7030

== ENCOUNTER 2024-01-25 19:56 | Emergency (ER) | payer OTHER, SELFPAY ==
--- NOTE | 2024-01-25 19:59 | ECG_ITS ---
Test Date: 2024-01-25 20:29:37 Measurements Intervals [place] [facility] Rate: 106 P: 59 MS: 139 QRS: 73 QRSD: 95 T: 30 QT: 353 QTc: 469 Interpretive Statements SINUS TACHYCARDIA DELAYED PRECORDIAL R/S TRANSITION BORDERLINE T WAVE ABNORMALITY- INFERIOR LEADS BASELINE ARTIFACT- I, II, AVL, V1 ABNORMAL ECG No previous ECG available for comparison Electronically Signed On 01-25-2024 21:21:47 CDT by Vini Yeh D.O.
--- NOTE | 2024-01-25 20:02 | ED.RECABL ---
HPI - Recheck/Abnormal Lab/Rx General Chief Complaint: Recheck/Abnormal Lab/Rx Stated Complaint: diabetes Time Seen by Provider: 01/25/24 19:58 Source: patient Mode of arrival: ambulatory Limitations: no limitations History of Present Illness HPI narrative: Patient is a 48-year-old female with diabetes type 2 using insulin. She is here with hyperglycemia in the 4-500 range today. She has no major complaints except the elevated blood sugar and not feeling well. She is having some wooziness and polyuria and polydipsia. She was started on oral agents for diabetes but did not start them on her own desire. Initial visit (ago): week(s) (1) Description of abnormal result: Hyperglycemia at home Context: other ( non compliant with oral diabetic medication) Associated symptoms: malaise Related Data Home Medications Medication Instructions Recorded Confirmed dextroamphetamine-amphetamine 20 20 mg PO DAILY 08/30/22 01/25/24 mg tablet lorazepam 1 mg tablet 1 mg PO BID 08/30/22 01/25/24 aripiprazole 5 mg tablet 5 mg PO DAILY 10/28/22 01/25/24 fluoxetine 40 mg capsule 40 mg PO DAILY 10/28/22 01/25/24 atorvastatin 20 mg tablet 20 mg PO DAILY 10/21/23 01/25/24 Allergies Allergy/AdvReac Type Severity Reaction Status Date / Time hydrocodone [Vicodin] Allergy Intermediate Nausea and Verified 10/21/23 20:22 Vomiting Review of Systems Review of Systems: All systems reviewed & are unremarkable except as noted in HPI and below Constitutional: Constitutional: Reports no additional constitutional complaints Eyes: Eyes: Reports no additional eye complaints ENT: Reports system reviewed and no additional complaints, except as documented Cardiovascular: Cardiovascular: Reports no additional cardiovascular complaints Respiratory: Respiratory: Reports no additional respiratory complaints Gastrointestinal: Gastrointestinal: Reports no additional gastrointestinal complaints Genitourinary: Genitourinary: Reports no additional female genitourinary complaints Musculoskeletal: Musculoskeletal: Reports no additional musculoskeletal complaints Integumentary/Breasts: Skin/Breast: Reports system reviewed and no additional complaints, except as docu Neurologic: Reports system reviewed and no additional complaints, except as documented Psychiatric: Psychiatric: Reports no additional psychiatric complaints Endocrine: Endocrine: Reports no additional endocrine complaints Hematologic/Lymphatic: Hematologic/Lymphatic: Reports no additional hematologic/lymphatic complaints Allergic/Immunologic: Allergic/Immunologic: Reports no additional allergic/immunologic complaints PMFSH Past Medical History Medical History Chronic back pain Depression Surgical History Surgical History H/O tubal ligation (~2003) H/O: hysterectomy (~2014) History of appendectomy (~2007) Social History Social History Smoking packs per day: 0.75 Smoking cigarettes per day: 15.0 Years smoked: 30 Smoking pack-years: 22.50 Smoking status: Current every day smoker Tobacco type: cigarettes Alcohol intake: never Substance use: never Substance use type: does not use Living arrangements: with family Spiritual care concerns: No Exam Const: General: healthy appearing Nutritional Appearance: well nourished Orientation/consciousness: patient oriented x3 HENMT: Head: normal to inspection Ears: external ears normal Face/Nose/Sinus: Normal external nose present Eyes: Conjunctivae: conjunctivae normal Pupils: Equal, round and reactive pupils present EOM: EOMs intact bilaterally Neck: Neck: normal visual inspection Chest: Chest palpation & inspection: normal inspection of the chest Resp: Effort & Inspection: normal respiratory effort and not labored Auscultation: clear t
[2024-01-25 20:05] LABS: Glucose Point of Care > 450 mg/dl (65-105)
[2024-01-25 20:10] VITALS: BP 147/95; PULSE 114; RESP 20; TEMP 36.8; O2SAT 95
[2024-01-25 20:21] LABS: Basophils Absolute Auto 0.06 K/mm3 (0.00-0.10); Basophils Percent Auto 0.7 % (0.0-1.0); Eosinophils Absolute Auto 0.28 K/mm3 (0.02-0.50); Eosinophils Percent Auto 3.1 % (1.0-6.0); Hematocrit 38.3 % (35.0-49.0); Hemoglobin 13.3 g/dL (12.0-15.0); Immature Granulocyte Absolute 0.04 K/mm3 (0.00-0.00); Immature Granulocyte Percent A 0.4 % (0.0-0.0); Lymphocytes Absolute Auto 2.07 K/mm3 (1.10-4.50); Lymphocytes Percent Auto 22.6 % (18.0-42.0); Mean Corpuscular HGB Conc 34.7 g/dL (32-36); Mean Corpuscular Hemoglobin 29.4 pg (27.0-31.0); Mean Corpuscular Volume 84.7 fL (78.0-102.0); Mean Platelet Volume 10.2 fl (9.2-11.8); Monocytes Absolute Auto 0.49 K/mm3 (0.10-0.90); Monocytes Percent Auto 5.3 % (2.0-11.0); Neutrophils Absolute Auto 6.23 K/mm3 (1.70-7.20); Neutrophils Percent Auto 67.9 % (50.0-70.0); Platelet Count Result 300 K/mm3 (150-420); Red Blood Count 4.52 M/mm3 (4.20-5.40); Red Cell Distribution Width 13.7 % (11.6-14.4); White Blood Count 9.2 K/mm3 (4.8-10.8)
[2024-01-25 20:25] LABS: Appearance Urine Clear (Clear); Bilirubin Urine Negative (Negative); Blood Urine Negative (Negative); Color Urine Light Yellow (Yellow); Glucose Urine UA 3+ (Negative); Ketones Urine Negative (Negative); Leukocyte Esterase Ur Negative LEU/UL (Negative); Nitrate Urine Negative (Negative); Protein Urine Negative (Negative); Urobilinogen Urine 0.2 mg/dL (0.2-1.0)
[2024-01-25 20:27] LABS: Add Urine Microscopic? NO; Pregnancy On Board Control Positive; Urine Pregnancy Test Negative
[2024-01-25] MEDS: SODIUM CHLORIDE 0.9% IV 1,000 ML 999 ML IV CONT (20:29)
[2024-01-25] MEDS: INSULIN HUMAN REGULAR (*BKC) 1,000 UNITS/10 ML VIAL 8 UNITS IV PUSH (20:30)
--- NOTE | 2024-01-25 20:30 | PC.NURSE ---
patient was notified that new blood glucose would be at 2130. patient verbalized understanding
[2024-01-25 20:35] LABS: Acetone Negative (Negative)
[2024-01-25 20:38] LABS: Alanine Aminotransferase 41 U/L (14-59); Albumin Level 3.3 g/dL (3.4-5.0); Alkaline Phosphatase 107 U/L (46-116); Anion Gap 13 mmol/L (4-12); Aspartate Amino Transferase 24 U/L (15-37); Bilirubin,Total 0.2 mg/dL (0.00-1.00); Blood Urea Nitrogen 6 mg/dL (7-18); Calcium 8.6 mg/dL (8.5-10.1); Carbon Dioxide 23 mmol/L (21-32); Chloride 99 mmol/L (98-108); Estimated CRCL calculation 81 ml/min; Estimated Glomerular Filt Rate > 60; Osmolality Calculated 296 mOsm/kg (285-295); Potassium 3.5 mmol/L (3.5-5.1); Sodium 135 mmol/L (136-145); Total Protein 6.8 g/dL (6.4-8.2)
[2024-01-25 20:41] LABS: Lactic Acid Reflex 1.9 mmol/L (0.4-2.0)
[2024-01-25 20:45] LABS: Glucose 446 mg/dL (70-99); Troponin I < 4.0 ng/L (0.00-60.4)
[2024-01-25 21:36] LABS: Glucose Point of Care 236 mg/dl (65-105)
[2024-01-25 21:39] VITALS: BP 121/85; PULSE 96; RESP 18; TEMP 36.4; O2SAT 98
--- NOTE | 2024-01-25 21:49 | PC.NURSE ---
patient is resting on stretcher with at her side. denies any needs. eating on ice chips. call light in reach
== END 2024-01-25 22:01 | disposition home or self-care (01) ==
PROVIDERS: Emergency Provider Emergency Medicine; PCP Physician Assistant Medical
DX: E11.65 Type 2 diabetes mellitus with hyperglycemia (principal); F17.210 Nicotine dependence, cigarettes, uncomplicated
CPT/HCPCS: 36415; 80053; 81003; 81025; 82010; 82948; 83605; 84484; 85025; 93005; 96361; 96374; 99284; J1815; J7030